=== PATIENT | female | born 1985 | race Caucasian/White ===

== ENCOUNTER → 2016-08-10 | Outpatient (CLI) | payer OTHER ==
[2016-08-10 09:43] LABS: ALBUMIN 3.4 GM/DL (3.2-5.2); ALBUMIN/GLOBULIN RATIO 0.94 (1.00-1.93); ALKALINE PHOSPHATASE 53 U/L (45-117); ALT/SGPT 66 U/L (12-78); ANION GAP 7 MEQ/L (8-16); AST/SGOT 90 U/L (15-37); BILIRUBIN,TOTAL 0.4 MG/DL (0.2-1.0); BLOOD UREA NITROGEN 16 MG/DL (7-18); CALCIUM LEVEL 8.9 MG/DL (8.5-10.1); CARBON DIOXIDE LEVEL 28 MEQ/L (21-32); CHLORIDE LEVEL 103 MEQ/L (98-107); FREE T4 1.19 NG/DL (0.76-1.46); GLOMERULAR FILTRATION RATE > 60.0 (>60); GLUCOSE, FASTING 126 MG/DL (70-105); SODIUM LEVEL 138 MEQ/L (136-145)
== END ==
LOC: M WUC 08:22
PROVIDERS: ATTEND Nurse Practitioner Family
DX: E11.9 Type 2 diabetes mellitus without complications (principal); E03.9 Hypothyroidism, unspecified

== ENCOUNTER → 2016-11-18 | Outpatient (CLI) | payer OTHER ==
[2016-11-18 10:47] LABS: ALBUMIN 3.5 GM/DL (3.2-5.2); ALBUMIN/GLOBULIN RATIO 0.81 (1.00-1.93); ALKALINE PHOSPHATASE 68 U/L (45-117); ALT/SGPT 106 U/L (12-78); ANION GAP 9 MEQ/L (8-16); AST/SGOT 136 U/L (15-37); BILIRUBIN,TOTAL 0.5 MG/DL (0.2-1.0); BLOOD UREA NITROGEN 19 MG/DL (7-18); CALCIUM LEVEL 9.5 MG/DL (8.5-10.1); CARBON DIOXIDE LEVEL 26 MEQ/L (21-32); CHLORIDE LEVEL 102 MEQ/L (98-107); CREATININE FOR GFR 0.92 MG/DL (0.55-1.02); FREE T4 1.35 NG/DL (0.76-1.46); GLOMERULAR FILTRATION RATE > 60.0 (>60); GLUCOSE, FASTING 221 MG/DL (70-105); SODIUM LEVEL 137 MEQ/L (136-145); TOTAL PROTEIN 7.8 GM/DL (6.4-8.2)
[2016-11-18 10:52] LABS: POTASSIUM SERUM 5.2 MEQ/L (3.5-5.1)
== END ==
LOC: M WUC 08:20
PROVIDERS: ATTEND Nurse Practitioner Family
DX: E11.9 Type 2 diabetes mellitus without complications (principal); E03.9 Hypothyroidism, unspecified

== ENCOUNTER → 2016-12-01 | Outpatient (CLI) | payer OTHER ==
[2016-12-01 13:58] LABS: BASO % 0.5 % (0.0-1.0); EOS # 0.3 K/mm3 (0.0-0.50); EOS % 3.8 % (0.0-3.0); LARGE UNSTAINED CELL # 0.1 K/mm3 (0.0-0.4); LYMPH # 1.9 K/mm3 (1.5-4.5); LYMPH % 21.2 % (24.0-44.0); MEAN CORPUSCULAR HEMOGLOBIN 27.9 pg (27.0-33.0); MEAN CORPUSCULAR HGB CONC 32.6 g/dl (32.0-36.5); MEAN CORPUSCULAR VOLUME 85.6 fl (80.0-96.0); MONO # 0.3 K/mm3 (0.0-0.8); MONO % 3.5 % (0.0-5.0); PLATELET COUNT, AUTOMATED 210 k/mm3 (150-450); RED CELL DISTRIBUTION WIDTH 13.5 % (11.5-14.5); WHITE BLOOD COUNT 8.6 K/mm3 (4.0-10.0)
[2016-12-01 14:18] LABS: ALBUMIN 3.9 GM/DL (3.2-5.2); ALBUMIN/GLOBULIN RATIO 0.93 (1.00-1.93); ALKALINE PHOSPHATASE 75 U/L (45-117); ALT/SGPT 104 U/L (12-78); ANION GAP 7 MEQ/L (8-16); AST/SGOT 129 U/L (15-37); BILIRUBIN,TOTAL 0.4 MG/DL (0.2-1.0); BLOOD UREA NITROGEN 18 MG/DL (7-18); CALCIUM LEVEL 10.5 MG/DL (8.5-10.1); CARBON DIOXIDE LEVEL 27 MEQ/L (21-32); CHLORIDE LEVEL 103 MEQ/L (98-107); CREATININE FOR GFR 1.01 MG/DL (0.55-1.02); GLOMERULAR FILTRATION RATE > 60.0 (>60); GLUCOSE, FASTING 251 MG/DL (70-105); SODIUM LEVEL 137 MEQ/L (136-145); TOTAL PROTEIN 8.1 GM/DL (6.4-8.2)
[2016-12-01 14:22] LABS: POTASSIUM SERUM 5.5 MEQ/L (3.5-5.1)
[2016-12-01 15:05] LABS: MICROSCOPIC INDICATED? MAN YES (NO)
[2016-12-01 15:15] LABS: BACTERIA, URINE SMALL AMOUNT; HYALINE CAST, URINE NONE SEEN /lpf (0-1); RBC, URINE TNTC /hpf (0-3); SQUAMOUS EPITHELIAL CELL URINE SMALL AMOUNT /hpf (SMALL AMT)
[2016-12-01 15:17] LABS: MICROSCOPIC EXAM PERFORMED
== END ==
LOC: M WUC 09:31
PROVIDERS: ATTEND Physician Assistant
DX: R10.32 Left lower quadrant pain (principal)

== ENCOUNTER → 2016-12-01 | Outpatient (CLI) | payer OTHER ==
--- NOTE | 2016-12-01 11:57 | REP ---
CT ABDOMEN AND PELVIS WITHOUT CONTRAST: CT abdomen and pelvis performed without oral or IV contrast. Sagittal and coronal reconstruction images are performed. The visualized lung bases are clear. The liver demonstrates multiple tiny subcentimeter hypodensities scattered throughout the liver. The liver is otherwise unremarkable. Gallbladder is unremarkable. Spleen, adrenals, and pancreas are unremarkable, as is the right kidney. The left kidney demonstrates moderate hydronephrosis. There is a tiny 2 mm calculus in the lower pole collecting system. There is a 4 mm calculus in the proximal left ureter causing moderate left hydronephrosis. There is no abdominal aortic aneurysm. There is no adenopathy. There is no free air or free fluid. There is no evidence of appendicitis. There is no evidence of a pelvic mass. IMPRESSION: 4 mm calculus proximal left ureter causes moderate left hydronephrosis. Multiple tiny subcentimeter hypodensities in the liver of uncertain significance. Recommend liver ultrasound to further evaluate. Signed by Dex Jc MD 12/01/2016 05:13 P
== END ==
LOC: M RAD 10:12
PROVIDERS: ATTEND Physician Assistant
DX: R10.32 Left lower quadrant pain (principal); M54.5 Low back pain

== ENCOUNTER → 2016-12-16 | Outpatient (REF) | payer OTHER | LOC: M SMT 12:55 | PROVIDERS: ATTEND Nurse Practitioner Women's Health | DX: N20.1 Calculus of ureter (principal) ==

== ENCOUNTER → 2016-12-23 | Outpatient (CLI) | payer OTHER ==
--- NOTE | 2016-12-23 12:14 | REP ---
RIGHT UPPER QUADRANT SONOGRAPHY: HISTORY: Nonalcoholic steatohepatitis. Comparison CT study December 01, 2016. FINDINGS: Scan quality inhibited to some degree by abdominal gas and limited scan windows. Scanning demonstrates poor insonation and increased echogenicity in the liver consistent with a some fatty infiltration. No focal liver mass lesion is seen by ultrasound. A normal sized thin-walled gallbladder is seen containing a small amount of sludge but no stone or polyp. Common bile duct is normal measuring 0.5 cm in greatest diameter. The pancreas is not observed due to abdominal gas. There is no evidence of ascites or right renal abnormality. The right kidney measures 12.5 x 6.0 x 4.8 cm. IMPRESSION: Minimal sludge in the gallbladder. Findings consistent with some degree of fatty infiltration of the liver. Pancreas is obscured by abdominal gas. Otherwise negative. Signed by Tyree Pedersen MD 12/23/2016 12:32 P
== END ==
LOC: M RAD 08:06
PROVIDERS: ATTEND Internal Medicine Gastroenterology
DX: K75.81 Nonalcoholic steatohepatitis (NASH) (principal)

== ENCOUNTER → 2017-01-10 | Outpatient (CLI) | payer OTHER ==
--- NOTE | 2017-01-11 09:31 | REP ---
MRI ABDOMEN WITHOUT AND WITH CONTRAST: 01/10/2017. Clinical history: Severe BRAFIELD and mild fibrosis on liver biopsy. Subtle hypodensity suggested on CT in the liver. Comparison: Abdominal ultrasound 12/23/2016, 08/14/2014, CT abdomen and pelvis without contrast 12/01/2016. Technique: Coronal true FISP, in and out of phase axial, T1, T2, fat suppressed T2 and gradient echo axial, coronal T2 and fat suppressed T2 images followed by a bolus of 18 mL of ProHance and dynamic axial gradient echo images along with coronal gradient echo sequence provided. Findings: The in and out of phase images demonstrate signal drop off throughout the liver indicating fatty liver change. There is mild splenomegaly with a vertical diameter of the spleen 14 cm. There is hepatomegaly with an enlarged left hepatic lobe with the right hepatic lobe showing a 23 cm vertical diameter in the midclavicular line. There are a few scattered tiny hyperintense foci on the liver images which are not well reproducible. I do not see any definite mass, abnormal enhancement, evidence of hemangioma, subcapsular hematoma or other acute liver finding. Hepatic veins and the portal system enhance normally. Gallbladder shows no filling defect or wall thickening. No pericholecystic fluid or ascites. Adrenal glands and kidneys grossly normal. Pancreas shows no mass or ductal dilatation. Previously noted left hydronephrosis is entirely resolved. Abdominal aorta grossly intact. No periaortic other retroperitoneal lymphadenopathy. No mesenteric edema or fluid collection. Visualized bowel loops intact. Marrow signal grossly normal. Impression: 1. Diffuse fatty infiltration of the liver with hepatomegaly and a 23 cm vertical diameter of the right hepatic lobe in the midclavicular line. There is mild splenomegaly up to 14 cm vertical diameter as well. 2. No hepatic mass. The tiny hypodense foci scattered in the liver on the CT scan cannot be reproduced on multiple scans. Findings may be related to slight heterogeneity of the fatty infiltration. No abnormal enhancement. No other finding. Signed by Zeke Decker MD 01/11/2017 07:00 P
== END ==
LOC: M RAD 16:56
PROVIDERS: ATTEND Internal Medicine Gastroenterology
DX: D37.6 Neoplasm of uncertain behavior of liver, gallbladder and bile ducts (principal); R93.3 Abnormal findings on diagnostic imaging of other parts of digestive tract

== ENCOUNTER → 2017-03-13 | Outpatient (CLI) | payer OTHER ==
[2017-03-13 09:29] LABS: ALBUMIN 3.3 GM/DL (3.2-5.2); ALBUMIN/GLOBULIN RATIO 0.73 (1.00-1.93); ALKALINE PHOSPHATASE 73 U/L (45-117); ALT/SGPT 79 U/L (12-78); ANION GAP 7 MEQ/L (8-16); AST/SGOT 71 U/L (15-37); BILIRUBIN,TOTAL 0.3 MG/DL (0.2-1.0); BLOOD UREA NITROGEN 16 MG/DL (7-18); CALCIUM LEVEL 9.7 MG/DL (8.5-10.1); CARBON DIOXIDE LEVEL 29 MEQ/L (21-32); CHLORIDE LEVEL 99 MEQ/L (98-107); CREATININE FOR GFR 0.75 MG/DL (0.55-1.02); FREE T4 1.21 NG/DL (0.76-1.46); GLOMERULAR FILTRATION RATE > 60.0 (>60); GLUCOSE, FASTING 226 MG/DL (70-105); POTASSIUM SERUM 4.9 MEQ/L (3.5-5.1); SODIUM LEVEL 135 MEQ/L (136-145); TOTAL PROTEIN 7.8 GM/DL (6.4-8.2)
== END ==
LOC: M WUC 08:09
PROVIDERS: ATTEND Nurse Practitioner Family
DX: E11.65 Type 2 diabetes mellitus with hyperglycemia (principal); E03.9 Hypothyroidism, unspecified

== ENCOUNTER → 2017-05-09 | Outpatient (CLI) | payer OTHER ==
[2017-05-09 13:06] LABS: ALBUMIN 3.6 GM/DL (3.2-5.2); ALBUMIN/GLOBULIN RATIO 0.86 (1.00-1.93); ALKALINE PHOSPHATASE 57 U/L (45-117); ALT/SGPT 93 U/L (12-78); ANION GAP 9 MEQ/L (8-16); AST/SGOT 94 U/L (7-37); BILIRUBIN,TOTAL 0.5 MG/DL (0.2-1.0); BLOOD UREA NITROGEN 14 MG/DL (7-18); CALCIUM LEVEL 9.2 MG/DL (8.5-10.1); CARBON DIOXIDE LEVEL 26 MEQ/L (21-32); CHLORIDE LEVEL 101 MEQ/L (98-107); CHOLESTEROL LEVEL 214 MG/DL (<200); CREATININE FOR GFR 0.74 MG/DL (0.55-1.02); FREE T4 1.28 NG/DL (0.76-1.46); GLOMERULAR FILTRATION RATE > 60.0 (>60); GLUCOSE, FASTING 147 MG/DL (70-105); SODIUM LEVEL 136 MEQ/L (136-145); TOTAL PROTEIN 7.8 GM/DL (6.4-8.2); TRIGLYCERIDES LEVEL 241 MG/DL (<150)
== END ==
LOC: M WUC 09:39
PROVIDERS: ATTEND Nurse Practitioner Family
DX: E11.65 Type 2 diabetes mellitus with hyperglycemia (principal)

== ENCOUNTER → 2017-07-17 | Outpatient (REF) | payer OTHER ==
[2017-07-17 15:45] LABS: BASO # 0.1 10^3/uL (0.0-0.2); BASO % 0.4 % (0.0-1.0); EOS # 0.1 10^3/uL (0.0-0.50); EOS % 0.3 % (0.0-3.0); HEMATOCRIT 43.3 % (36.0-47.0); HEMOGLOBIN 14.2 g/dl (12.0-16.0); IMMATURE GRANULOCYTE # 0.1 10^3/uL (0-0); IMMATURE GRANULOCYTE % 0.7 % (0-0); LYMPH # 4.4 10^3/uL (1.5-4.5); LYMPH % 20.6 % (24.0-44.0); MEAN CORPUSCULAR HEMOGLOBIN 27.1 pg (27.0-33.0); MEAN CORPUSCULAR HGB CONC 32.8 g/dl (32.0-36.5); MEAN CORPUSCULAR VOLUME 82.6 fl (80.0-96.0); MONO # 0.9 10^3/uL (0.0-0.8); MONO % 4.1 % (0.0-5.0); NEUTROPHILS # 15.8 10^3/uL (1.8-7.7); NEUTROPHILS % 73.9 % (36.0-66.0); PLATELET COUNT, AUTOMATED 381 10^3/uL (150-450); RED BLOOD COUNT 5.24 10^6/uL (4.00-5.40); RED CELL DISTRIBUTION WIDTH 13.5 % (11.5-14.5); WHITE BLOOD COUNT 21.4 10^3/uL (4.0-10.0)
[2017-07-17 15:49] LABS: ALBUMIN 3.5 GM/DL (3.2-5.2); ALKALINE PHOSPHATASE 55 U/L (45-117); ALT/SGPT 57 U/L (12-78); ANION GAP 10 MEQ/L (8-16); AST/SGOT 46 U/L (7-37); BILIRUBIN,TOTAL 0.6 MG/DL (0.2-1.0); BLOOD UREA NITROGEN 20 MG/DL (7-18); CARBON DIOXIDE LEVEL 29 MEQ/L (21-32); CHLORIDE LEVEL 95 MEQ/L (98-107); GLOMERULAR FILTRATION RATE > 60.0 (>60); GLUCOSE, FASTING 334 MG/DL (70-100); LIPASE 166 U/L (73-393); POTASSIUM SERUM 4.6 MEQ/L (3.5-5.1); SODIUM LEVEL 134 MEQ/L (136-145); TOTAL PROTEIN 7.4 GM/DL (6.4-8.2)
== END ==
LOC: M SFHCPLAZ 13:26
DX: R10.11 Right upper quadrant pain (principal)

== ENCOUNTER → 2017-07-17 | Outpatient (CLI) | payer OTHER | LOC: M RAD 15:31 | DX: R10.11 Right upper quadrant pain (principal); R16.0 Hepatomegaly, not elsewhere classified; R18.8 Other ascites; K76.0 Fatty (change of) liver, not elsewhere classified | CPT/HCPCS: 76705 ==

== ENCOUNTER → 2017-07-18 | Outpatient (CLI) | payer OTHER ==
[~2017-07-18] MED LIST: GASTROGRAFIN SOLUTION 30ML (Q9963) As Ordered; ISOVUE-370 76% 100ML VIAL (Q9967) As Ordered
== END ==
LOC: M RAD 09:00
DX: R10.11 Right upper quadrant pain (principal)
CPT/HCPCS: Q9963

== ENCOUNTER → 2017-08-12 | Outpatient (CLI) | payer OTHER ==
[2017-08-12 14:40] LABS: ALBUMIN 3.6 GM/DL (3.2-5.2); ALBUMIN/GLOBULIN RATIO 0.97 (1.00-1.93); ALKALINE PHOSPHATASE 53 U/L (45-117); ALT/SGPT 75 U/L (12-78); ANION GAP 8 MEQ/L (8-16); AST/SGOT 67 U/L (7-37); BILIRUBIN,TOTAL 0.4 MG/DL (0.2-1.0); BLOOD UREA NITROGEN 18 MG/DL (7-18); CARBON DIOXIDE LEVEL 29 MEQ/L (21-32); CHLORIDE LEVEL 101 MEQ/L (98-107); CREATININE FOR GFR 0.73 MG/DL (0.55-1.30); FREE T4 1.18 NG/DL (0.76-1.46); GLOMERULAR FILTRATION RATE > 60.0 (>60); GLUCOSE, FASTING 119 MG/DL (70-100); POTASSIUM SERUM 4.7 MEQ/L (3.5-5.1); SODIUM LEVEL 138 MEQ/L (136-145); TOTAL PROTEIN 7.3 GM/DL (6.4-8.2)
[2017-08-12 14:48] LABS: ESTIMATED AVERAGE GLUCOSE 240 MG/DL (60-110)
[2017-08-12 14:49] LABS: MALB URINE SIEMENS 29.5 MG/L; MAU/CREAT RATIO 14.1 MCG/MG (0.0-30.0)
== END ==
LOC: M WUC 08:18
DX: I10 Essential (primary) hypertension (principal); K75.81 Nonalcoholic steatohepatitis (NASH); E03.9 Hypothyroidism, unspecified; E11.65 Type 2 diabetes mellitus with hyperglycemia
CPT/HCPCS: 84443

== ENCOUNTER 2017-09-28 11:06 | Emergency (ER) | payer OTHER ==
[2017-09-28 11:25] LABS: BEDSIDE GLUCOSE 483 MG/DL (70-105)
[2017-09-28] MEDS: NS 1,000 ML IV ×2 (11:39→14:15)
[2017-09-28 11:48] LABS: VENOUS BASE EXCESS -1.2 (-2.0-2.0); VENOUS HCO3 25.4 MEQ/L (23.0-27.0); VENOUS O2 SATURATION 49.2 % (60.0-80.0); VENOUS PARTIAL PRESSURE CO2 49.5 mmHg (38.0-50.0); VENOUS PARTIAL PRESSURE O2 29.6 mmHg (30.0-50.0); VENOUS PH 7.328 UNITS (7.330-7.430); VENOUS STANDARD HCO3 22.2 MEQ/L; VENOUS TOTAL CO2 26.9 MEQ/L (24.0-28.0)
[2017-09-28 11:50] LABS: BASO # 0.1 10^3/uL (0.0-0.2); BASO % 0.6 % (0.0-1.0); EOS # 0.1 10^3/uL (0.0-0.50); EOS % 0.6 % (0.0-3.0); HEMATOCRIT 45.2 % (36.0-47.0); HEMOGLOBIN 15.1 g/dl (12.0-15.5); IMMATURE GRANULOCYTE % 0.7 % (0-3.0); LYMPH # 3.2 10^3/uL (1.5-4.5); LYMPH % 16.5 % (24.0-44.0); MEAN CORPUSCULAR HEMOGLOBIN 27.6 pg (27.0-33.0); MEAN CORPUSCULAR HGB CONC 33.4 g/dl (32.0-36.5); MEAN CORPUSCULAR VOLUME 82.5 fl (80.0-96.0); MONO # 0.7 10^3/uL (0.0-0.8); MONO % 3.8 % (0.0-5.0); NEUTROPHILS # 15.1 10^3/uL (1.8-7.7); NEUTROPHILS % 77.8 % (36.0-66.0); PLATELET COUNT, AUTOMATED 402 10^3/uL (150-450); RED BLOOD COUNT 5.48 10^6/uL (4.00-5.40); RED CELL DISTRIBUTION WIDTH 12.5 % (11.5-14.5); WHITE BLOOD COUNT 19.4 10^3/uL (4.0-10.0)
[2017-09-28] MEDS ORDERED: MORPHINE 4 MG/ML 1ML VIAL/SYRINGE (J2270) As Ordered (11:52)
[2017-09-28] MEDS: ONDANSETRON 4MG/2ML VIAL (J2405) IV (12:01)
[2017-09-28] MEDS: MORPHINE 4 MG/ML 1ML VIAL/SYRINGE (J2270) IV (12:02)
[2017-09-28 12:04] LABS: CONTROL LINE HCG INT CTR LINE PRESENT; HCG, SERUM QUALITATIVE NEGATIVE (NEGATIVE)
[2017-09-28 12:05] LABS: KETONE, URINE AUTO RFX 2+ mg/dL (NEGATIVE); LEUKOCYTE ESTERASE UR AUTO RFX NEGATIVE (NEGATIVE); NITRITE, URINE AUTO RFX NEGATIVE (NEGATIVE); RBC, URINE AUTO RFX 4 /HPF (0-3); SPECIFIC GRAVITY UR AUTO RFX 1.035 (1.002-1.035); SQUAM EPITHELIAL CELL UR AURFX 2 /HPF (0-6); WBC, URINE AUTO RFX 3 /HPF (0-3)
[2017-09-28 12:25] LABS: ESTIMATED AVERAGE GLUCOSE 286 MG/DL (60-110); HEMOGLOBIN A1c 11.6 %
[2017-09-28 13:25] LABS: BEDSIDE GLUCOSE 351 MG/DL (70-105)
[2017-09-28 13:53] LABS: ALBUMIN 3.6 GM/DL (3.2-5.2); ALKALINE PHOSPHATASE 76 U/L (45-117); ALT/SGPT 76 U/L (12-78); ANION GAP 16 MEQ/L (8-16); AST/SGOT 66 U/L (7-37); BILIRUBIN,DIRECT 0.3 MG/DL (0.0-0.2); BILIRUBIN,TOTAL 0.8 MG/DL (0.2-1.0); BLOOD UREA NITROGEN 25 MG/DL (7-18); CALCIUM LEVEL 10.2 MG/DL (8.5-10.1); CARBON DIOXIDE LEVEL 23 MEQ/L (21-32); CHLORIDE LEVEL 92 MEQ/L (98-107); CREATININE FOR GFR 1.06 MG/DL (0.55-1.30); GLOMERULAR FILTRATION RATE > 60.0 (>60); LIPASE 177 U/L (73-393); SODIUM LEVEL 131 MEQ/L (136-145); TOTAL PROTEIN 8.1 GM/DL (6.4-8.2)
[2017-09-28 14:04] LABS: GLUCOSE, FASTING 438 MG/DL (70-100)
[2017-09-28 15:50] LABS: HEMATOCRIT 37.6 % (36.0-47.0); HEMOGLOBIN 12.3 g/dl (12.0-15.5); MEAN CORPUSCULAR HGB CONC 32.7 g/dl (32.0-36.5); MEAN CORPUSCULAR VOLUME 82.6 fl (80.0-96.0); PLATELET COUNT, AUTOMATED 282 10^3/uL (150-450); RED BLOOD COUNT 4.55 10^6/uL (4.00-5.40); RED CELL DISTRIBUTION WIDTH 12.6 % (11.5-14.5); WHITE BLOOD COUNT 14.9 10^3/uL (4.0-10.0)
[2017-09-28 16:06] LABS: ANION GAP 8 MEQ/L (8-16); BLOOD UREA NITROGEN 23 MG/DL (7-18); CALCIUM LEVEL 8.3 MG/DL (8.5-10.1); CARBON DIOXIDE LEVEL 25 MEQ/L (21-32); CHLORIDE LEVEL 102 MEQ/L (98-107); CREATININE FOR GFR 0.93 MG/DL (0.55-1.30); GLOMERULAR FILTRATION RATE > 60.0 (>60); GLUCOSE, FASTING 317 MG/DL (70-100); SODIUM LEVEL 135 MEQ/L (136-145)
[2017-09-28 16:12] LABS: POTASSIUM SERUM 5.5 MEQ/L (3.5-5.1)
== END 2017-09-28 16:36 | disposition home or self-care (01) ==
LOC: M ED 11:06
DX: K80.50 Calculus of bile duct without cholangitis or cholecystitis without obstruction (principal); E11.65 Type 2 diabetes mellitus with hyperglycemia; I10 Essential (primary) hypertension; K21.9 Gastro-esophageal reflux disease without esophagitis; E28.2 Polycystic ovarian syndrome; K76.0 Fatty (change of) liver, not elsewhere classified; E03.9 Hypothyroidism, unspecified; G43.909 Migraine, unspecified, not intractable, without status migrainosus; Z79.4 Long term (current) use of insulin
CPT/HCPCS: J2270

== ENCOUNTER → 2017-10-03 | Outpatient (REF) | payer OTHER ==
[2017-10-03 13:51] LABS: BASO # 0.1 10^3/uL (0.0-0.2); BASO % 0.6 % (0.0-1.0); EOS # 0.2 10^3/uL (0.0-0.50); EOS % 2.6 % (0.0-3.0); HEMATOCRIT 39.5 % (36.0-47.0); HEMOGLOBIN 12.8 g/dl (12.0-15.5); IMMATURE GRANULOCYTE % 0.4 % (0-3.0); LYMPH # 2.6 10^3/uL (1.5-4.5); LYMPH % 30.9 % (24.0-44.0); MEAN CORPUSCULAR HEMOGLOBIN 27.2 pg (27.0-33.0); MEAN CORPUSCULAR HGB CONC 32.4 g/dl (32.0-36.5); MEAN CORPUSCULAR VOLUME 83.9 fl (80.0-96.0); MONO # 0.5 10^3/uL (0.0-0.8); MONO % 6.3 % (0.0-5.0); NEUTROPHILS % 59.2 % (36.0-66.0); PLATELET COUNT, AUTOMATED 235 10^3/uL (150-450); RED BLOOD COUNT 4.71 10^6/uL (4.00-5.40); RED CELL DISTRIBUTION WIDTH 12.5 % (11.5-14.5); WHITE BLOOD COUNT 8.4 10^3/uL (4.0-10.0)
[2017-10-03 15:27] LABS: ALBUMIN 3.6 GM/DL (3.2-5.2); ALBUMIN/GLOBULIN RATIO 0.82 (1.00-1.93); ALKALINE PHOSPHATASE 83 U/L (45-117); ALT/SGPT 104 U/L (12-78); ANION GAP 6 MEQ/L (8-16); AST/SGOT 92 U/L (7-37); BILIRUBIN,TOTAL 0.3 MG/DL (0.2-1.0); BLOOD UREA NITROGEN 16 MG/DL (7-18); CALCIUM LEVEL 10.6 MG/DL (8.5-10.1); CARBON DIOXIDE LEVEL 32 MEQ/L (21-32); CHLORIDE LEVEL 95 MEQ/L (98-107); CREATININE FOR GFR 0.82 MG/DL (0.55-1.30); GLOMERULAR FILTRATION RATE > 60.0 (>60); GLUCOSE, FASTING 355 MG/DL (70-100); SODIUM LEVEL 133 MEQ/L (136-145)
[2017-10-03 15:33] LABS: POTASSIUM SERUM 5.2 MEQ/L (3.5-5.1)
== END ==
LOC: M SFHCPLAZ 12:07
DX: E87.5 Hyperkalemia (principal); D72.829 Elevated white blood cell count, unspecified

== ENCOUNTER → 2017-10-11 | Outpatient (CLI) | payer OTHER | LOC: M RAD 07:40 | DX: R10.13 Epigastric pain (principal) | CPT/HCPCS: J2805 ==

== ENCOUNTER → 2017-10-14 | Outpatient (REF) | payer OTHER ==
[2017-10-14 11:21] LABS: ANION GAP 9 MEQ/L (8-16); BLOOD UREA NITROGEN 16 MG/DL (7-18); CALCIUM LEVEL 9.2 MG/DL (8.5-10.1); CARBON DIOXIDE LEVEL 28 MEQ/L (21-32); CHLORIDE LEVEL 100 MEQ/L (98-107); CREATININE FOR GFR 0.76 MG/DL (0.55-1.30); GLOMERULAR FILTRATION RATE > 60.0 (>60); GLUCOSE, FASTING 229 MG/DL (70-100); POTASSIUM SERUM 4.6 MEQ/L (3.5-5.1); SODIUM LEVEL 137 MEQ/L (136-145)
== END ==
LOC: M LABWUC 10:33
DX: E87.5 Hyperkalemia (principal)

== ENCOUNTER → 2017-11-11 | Outpatient (CLI) | payer OTHER ==
[2017-11-11 11:22] LABS: ESTIMATED AVERAGE GLUCOSE 286 MG/DL (60-110); HEMOGLOBIN A1c 11.6 %
[2017-11-11 11:26] LABS: ALBUMIN 3.3 GM/DL (3.2-5.2); ALBUMIN/GLOBULIN RATIO 0.85 (1.00-1.93); ALKALINE PHOSPHATASE 61 U/L (45-117); ALT/SGPT 128 U/L (12-78); ANION GAP 9 MEQ/L (8-16); AST/SGOT 175 U/L (7-37); BILIRUBIN,TOTAL 0.3 MG/DL (0.2-1.0); BLOOD UREA NITROGEN 16 MG/DL (7-18); CALCIUM LEVEL 9.2 MG/DL (8.5-10.1); CARBON DIOXIDE LEVEL 28 MEQ/L (21-32); CHLORIDE LEVEL 100 MEQ/L (98-107); CREATININE FOR GFR 0.81 MG/DL (0.55-1.30); FREE T4 1.22 NG/DL (0.76-1.46); GLOMERULAR FILTRATION RATE > 60.0 (>60); GLUCOSE, FASTING 189 MG/DL (70-100); POTASSIUM SERUM 4.6 MEQ/L (3.5-5.1); SODIUM LEVEL 137 MEQ/L (136-145); TOTAL PROTEIN 7.2 GM/DL (6.4-8.2)
== END ==
LOC: M WUC 08:15
DX: E11.65 Type 2 diabetes mellitus with hyperglycemia (principal); E03.9 Hypothyroidism, unspecified
CPT/HCPCS: 84443

== ENCOUNTER 2017-12-15 05:54 | Day surgery (SDC) | payer OTHER ==
[2017-12-15 06:47] LABS: BEDSIDE GLUCOSE 243 MG/DL (70-105)
[2017-12-15 06:48] LABS: CONTROL LINE UCG INT CTR LINE PRESENT; URINE PREG TEST NEGATIVE (NEGATIVE)
[2017-12-15] MEDS: LR 1,000 ML IV ×2 (07:04→09:11)
[2017-12-15] MEDS ORDERED: ONDANSETRON 4MG/2ML VIAL (J2405) As Ordered (07:09)
[2017-12-15] MEDS ORDERED: fentaNYL 250 MCG/5 ML INJECTION (J3010) As Ordered (07:09)
[2017-12-15] MEDS ORDERED: PROPOFOL 200 MG/20 ML VIAL As Ordered (07:09)
[2017-12-15] MEDS ORDERED: MIDAZOLAM INJ 2 MG/2 ML VIAL (J2250) As Ordered (07:09)
[2017-12-15] MEDS ORDERED: ROCURONIUM BROMIDE 50 MG/5 ML VIAL As Ordered ×2 (07:09→08:44)
[2017-12-15] MEDS ORDERED: dexameTHASONE 4 MG/ML 1ML VIAL (J1100) As Ordered ×2 (07:09)
[2017-12-15] MEDS ORDERED: HumaLOG INSULIN (NovoLOG) PER UNIT As Ordered (07:11)
[2017-12-15] MEDS ORDERED: LIDOCAINE 2% INJ 100 MG/5 ML SDV (FOR ANES.) As Ordered (07:13)
[2017-12-15] MEDS: AMPICILLIN SOD/SULBACTAM SOD 3 GM in D5W MINI-BAG PLUS 100 ML IV (07:40)
[2017-12-15] MEDS: BUPIVACAINE HCL 0.25% 30 ML VIAL As Ordered (07:53)
[2017-12-15] MEDS: LIDOCAINE 1% SDV INJ 30 ML VIAL As Ordered (07:53)
[2017-12-15] MEDS ORDERED: NEOSTIGMINE 10 MG/10 ML VIAL (J2710) As Ordered (08:02)
[2017-12-15] MEDS ORDERED: GLYCOPYRROLATE INJ 0.2 MG/ML 2 ML VIAL As Ordered ×2 (08:02)
[2017-12-15] MEDS ORDERED: fentaNYL 100 MCG/2 ML INJECTION (J3010) As Ordered (08:51)
[2017-12-15 09:19] LABS: BEDSIDE GLUCOSE 352 MG/DL (70-105)
[2017-12-15] MEDS: HumaLOG INSULIN (NovoLOG) PER UNIT SC (09:20)
[2017-12-15] MEDS ORDERED: NORCO, ANEXSIA 5/325MG TABLET (HYDROcodone/ACETAMINOPHEN) PO ×2 (09:30)
[2017-12-15] MEDS ORDERED: KETOROLAC 30 MG/ML VIAL (J1885) IV (09:30)
[2017-12-15] MEDS: fentaNYL 100 MCG/2 ML INJECTION (J3010) IV ×4 (09:40→09:55)
[2017-12-15] MEDS: ONDANSETRON 4MG/2ML VIAL (J2405) IV (09:40)
[2017-12-15] MEDS: PERCOCET 5MG/325MG TAB PO ×2 (09:40→10:10)
[2017-12-15 10:48] LABS: BEDSIDE GLUCOSE 338 MG/DL (70-105)
[2017-12-15] MEDS: METOCLOPRAMIDE INJ 10MG/2ML VIAL (J2765) IV (11:00)
[2017-12-15] MEDS ORDERED: ceFAZolin 2 GM/D5W 50 ML IV BAG (J0690 PER 500MG) As Ordered (11:54)
== END 2017-12-15 14:50 | disposition home or self-care (01) ==
LOC: M SDC 05:54
DX: K80.10 Calculus of gallbladder with chronic cholecystitis without obstruction (principal); K75.81 Nonalcoholic steatohepatitis (NASH); I10 Essential (primary) hypertension; E11.65 Type 2 diabetes mellitus with hyperglycemia; E03.9 Hypothyroidism, unspecified; K21.9 Gastro-esophageal reflux disease without esophagitis; E78.00 Pure hypercholesterolemia, unspecified; E78.2 Mixed hyperlipidemia; G43.009 Migraine without aura, not intractable, without status migrainosus; L30.9 Dermatitis, unspecified; L21.9 Seborrheic dermatitis, unspecified; E28.2 Polycystic ovarian syndrome; E55.9 Vitamin D deficiency, unspecified; J30.9 Allergic rhinitis, unspecified; B37.3 Candidiasis of vulva and vagina; E66.9 Obesity, unspecified; Z91.018 Allergy to other foods; Z79.899 Other long term (current) drug therapy; Z79.84 Long term (current) use of oral hypoglycemic drugs
CPT/HCPCS: 47562

== ENCOUNTER → 2018-02-24 | Outpatient (CLI) | payer OTHER ==
[2018-02-24 18:01] LABS: ALBUMIN 3.3 GM/DL (3.2-5.2); ALBUMIN/GLOBULIN RATIO 0.85 (1.00-1.93); ALKALINE PHOSPHATASE 50 U/L (45-117); ALT/SGPT 34 U/L (12-78); ANION GAP 11 MEQ/L (8-16); AST/SGOT 42 U/L (7-37); BILIRUBIN,TOTAL 0.4 MG/DL (0.2-1.0); BLOOD UREA NITROGEN 15 MG/DL (7-18); CARBON DIOXIDE LEVEL 27 MEQ/L (21-32); CHLORIDE LEVEL 100 MEQ/L (98-107); CHOLESTEROL LEVEL 176 MG/DL (<200); CHOLESTEROL RISK RATIO 4.512 (<5); CREATININE FOR GFR 0.76 MG/DL (0.55-1.30); GLOMERULAR FILTRATION RATE > 60.0 (>60); GLUCOSE, FASTING 115 MG/DL (70-100); HDL CHOLESTEROL 39 MG/DL (>40); LDL CHOLESTEROL 76 MG/DL (<100); NON-HDL-C 137 MG/DL; POTASSIUM SERUM 4.7 MEQ/L (3.5-5.1); SODIUM LEVEL 138 MEQ/L (136-145); TOTAL PROTEIN 7.2 GM/DL (6.4-8.2); TRIGLYCERIDES LEVEL 306 MG/DL (<150)
[2018-02-24 18:06] LABS: ESTIMATED AVERAGE GLUCOSE 209 MG/DL (60-110); HEMOGLOBIN A1c 8.9 %
[2018-02-24 18:35] LABS: MALB URINE SIEMENS 34.7 MG/L; MAU/CREAT RATIO 11.9 MCG/MG (0.0-30.0)
[2018-02-26 09:30] LABS: TOTAL 25(OH) VITAMIN D 67.5 NG/ML (30.0-100.0)
== END ==
LOC: M WUC 08:21
DX: E11.9 Type 2 diabetes mellitus without complications (principal); E78.2 Mixed hyperlipidemia; E55.9 Vitamin D deficiency, unspecified
CPT/HCPCS: 80053

== ENCOUNTER → 2018-05-06 | Outpatient (REF) | payer OTHER | LOC: M LAB REF 13:28 | DX: R30.0 Dysuria (principal) ==

== ENCOUNTER → 2018-06-18 | Outpatient (REF) | payer BC, MEDICAID ==
[~2018-06-18] MED LIST changes: +BIOT50004 PO; +DIVA250T67; +FAMO40TA3; +FISH120016 PO; -GASTROGRAFIN SOLUTION 30ML (Q9963) As Ordered; -ISOVUE-370 76% 100ML VIAL (Q9967) As Ordered; +KELN1TAB; +LEVO50TA5; +LISI10TA4; +METF10004; +OMEP20CA3; +OMEP40CA2; +TOUJ1.2I SC; +VITA1CAP7 PO; +[UNRECOGNIZED DRUG - CODE] SC
[2018-06-18 20:04] LABS: CHLAMYDIA DNA AMPLIFICATION NEGATIVE (NEGATIVE); GC DNA AMPLIFICATION NEGATIVE (NEGATIVE)
== END ==
LOC: M SFHCWAGY 17:19
PROVIDERS: ATTEND Nurse Practitioner Women's Health
DX: Z30.41 Encounter for surveillance of contraceptive pills (principal)

== ENCOUNTER → 2018-06-25 | Outpatient (REF) | payer BC, OTHER | LOC: M LAB REF 16:27 | PROVIDERS: ATTEND Physician Assistant | DX: N39.0 Urinary tract infection, site not specified (principal) ==

== ENCOUNTER → 2018-07-17 | Outpatient (CLI) | payer BC, MEDICAID ==
[2018-07-17 09:57] LABS: ALBUMIN 3.3 GM/DL (3.2-5.2); ALT/SGPT 26 U/L (12-78); BILIRUBIN,TOTAL 0.4 MG/DL (0.2-1.0); BLOOD UREA NITROGEN 21 MG/DL (7-18); CARBON DIOXIDE LEVEL 29 MEQ/L (21-32); CHLORIDE LEVEL 100 MEQ/L (98-107); FREE T4 1.17 NG/DL (0.76-1.46); GLOMERULAR FILTRATION RATE > 60.0 (>60); GLUCOSE, FASTING 144 MG/DL (70-100); POTASSIUM SERUM 5.1 MEQ/L (3.5-5.1); SODIUM LEVEL 137 MEQ/L (136-145); THYROID STIMULATING HORMONE 0.829 uIU/ML (0.358-3.740); TOTAL PROTEIN 6.8 GM/DL (6.4-8.2)
[2018-07-17 11:47] LABS: TOTAL 25(OH) VITAMIN D 60.8 NG/ML (30.0-100.0)
== END ==
LOC: M WUC 08:07
PROVIDERS: ATTEND Nurse Practitioner Family
DX: E11.65 Type 2 diabetes mellitus with hyperglycemia (principal); E03.9 Hypothyroidism, unspecified; E55.9 Vitamin D deficiency, unspecified

== ENCOUNTER → 2019-01-16 | Outpatient (CLI) | payer BC ==
[~2019-01-16] MED LIST changes: +D-3-50003 PO; +OMEP1CAP73; -OMEP20CA3; -OMEP40CA2; +OMEP40CA97; -VITA1CAP7 PO
[2019-01-16 10:04] LABS: MALB URINE SIEMENS 27.9 MG/L
[2019-01-16 10:05] LABS: ALBUMIN 3.6 GM/DL (3.2-5.2); ALT/SGPT 40 U/L (12-78); BILIRUBIN,TOTAL 0.4 MG/DL (0.2-1.0); BLOOD UREA NITROGEN 14 MG/DL (7-18); CALCIUM LEVEL 9.4 MG/DL (8.5-10.1); CARBON DIOXIDE LEVEL 28 MEQ/L (21-32); CHLORIDE LEVEL 102 MEQ/L (98-107); CHOLESTEROL LEVEL 186 MG/DL (<200); CHOLESTEROL RISK RATIO 4.325 (<5); FREE T4 1.24 NG/DL (0.76-1.46); GLOMERULAR FILTRATION RATE > 60.0 (>60); GLUCOSE, FASTING 174 MG/DL (70-100); HDL CHOLESTEROL 43 MG/DL (>40); LDL CHOLESTEROL 100 MG/DL (<100); NON-HDL-C 143 MG/DL; POTASSIUM SERUM 4.5 MEQ/L (3.5-5.1); SODIUM LEVEL 138 MEQ/L (136-145); TOTAL PROTEIN 7.1 GM/DL (6.4-8.2); TRIGLYCERIDES LEVEL 214 MG/DL (<150)
[2019-01-16 10:40] LABS: TOTAL 25(OH) VITAMIN D 61.6 NG/ML (30.0-100.0)
== END ==
LOC: M WUC 08:08
PROVIDERS: ATTEND Nurse Practitioner Family
DX: E78.2 Mixed hyperlipidemia (principal); E03.9 Hypothyroidism, unspecified; E11.65 Type 2 diabetes mellitus with hyperglycemia; E55.9 Vitamin D deficiency, unspecified

== ENCOUNTER → 2019-02-26 | Outpatient (REF) | payer BC ==
[~2019-02-26] MED LIST changes: -OMEP1CAP73; +OMEP20CA4; +OMEP40CA2; -OMEP40CA97
== END ==
LOC: M LAB REF 11:30
PROVIDERS: ATTEND Nurse Practitioner Family
DX: R30.0 Dysuria (principal)

== ENCOUNTER → 2019-05-08 | Outpatient (CLI) | payer BC ==
[~2019-05-08] MED LIST changes: -OMEP40CA2; +OMEP40CA97
[2019-05-08 13:14] LABS: ALBUMIN 3.5 GM/DL (3.2-5.2); ALT/SGPT 41 U/L (12-78); BILIRUBIN,TOTAL 0.5 MG/DL (0.2-1.0); BLOOD UREA NITROGEN 16 MG/DL (7-18); CALCIUM LEVEL 9.1 MG/DL (8.5-10.1); CARBON DIOXIDE LEVEL 27 MEQ/L (21-32); CHLORIDE LEVEL 100 MEQ/L (98-107); CREATININE FOR GFR 0.76 MG/DL (0.55-1.30); FREE T4 1.19 NG/DL (0.76-1.46); GLOMERULAR FILTRATION RATE > 60.0 (>60); GLUCOSE, FASTING 162 MG/DL (70-100); POTASSIUM SERUM 4.1 MEQ/L (3.5-5.1); SODIUM LEVEL 135 MEQ/L (136-145); TOTAL PROTEIN 7.1 GM/DL (6.4-8.2)
== END ==
LOC: M WUC 09:14
PROVIDERS: ATTEND Nurse Practitioner Family
DX: E03.9 Hypothyroidism, unspecified (principal); I10 Essential (primary) hypertension

== ENCOUNTER → 2019-06-11 | Outpatient (CLI) | payer BC ==
[~2019-06-11] MED LIST changes: +OMEP-172; -OMEP20CA4
[2019-06-11 08:49] LABS: BLOOD UREA NITROGEN 9 MG/DL (7-18); CALCIUM LEVEL 8.8 MG/DL (8.5-10.1); CARBON DIOXIDE LEVEL 27 MEQ/L (21-32); CHLORIDE LEVEL 102 MEQ/L (98-107); CREATININE FOR GFR 0.79 MG/DL (0.55-1.30); GLOMERULAR FILTRATION RATE > 60.0 (>60); GLUCOSE, FASTING 244 MG/DL (70-100); POTASSIUM SERUM 4.4 MEQ/L (3.5-5.1); SODIUM LEVEL 137 MEQ/L (136-145)
--- NOTE | 2019-06-13 07:31 | ECGEPIP ---
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
== END ==
LOC: M LAB 08:04
PROVIDERS: ATTEND Orthopaedic Surgery Hand Surgery
DX: G56.22 Lesion of ulnar nerve, left upper limb (principal); G56.02 Carpal tunnel syndrome, left upper limb

== ENCOUNTER → 2019-10-17 | Outpatient (CLI) | payer BC ==
[~2019-10-17] MED LIST changes: -OMEP-172; +OMEP1CAP73
[2019-10-17 13:10] LABS: ALBUMIN 3.2 GM/DL (3.2-5.2); ALT/SGPT 37 U/L (12-78); BILIRUBIN,TOTAL 0.5 MG/DL (0.2-1.0); BLOOD UREA NITROGEN 18 MG/DL (7-18); CALCIUM LEVEL 8.5 MG/DL (8.5-10.1); CARBON DIOXIDE LEVEL 27 MEQ/L (21-32); CHLORIDE LEVEL 102 MEQ/L (98-107); CHOLESTEROL LEVEL 149 MG/DL (<200); CREATININE FOR GFR 0.67 MG/DL (0.55-1.30); GLOMERULAR FILTRATION RATE > 60.0 (>60); GLUCOSE, FASTING 105 MG/DL (70-100); HDL CHOLESTEROL 39 MG/DL (>40); LDL CHOLESTEROL 67 MG/DL (<100); NON-HDL-C 110 MG/DL; POTASSIUM SERUM 4.3 MEQ/L (3.5-5.1); SODIUM LEVEL 137 MEQ/L (136-145); TOTAL PROTEIN 6.9 GM/DL (6.4-8.2); TRIGLYCERIDES LEVEL 214 MG/DL (<150)
[2019-10-17 13:30] LABS: MALB URINE SIEMENS 20.6 MG/L; MAU/CREAT RATIO 7.1 MCG/MG (0.0-30.0)
[2019-10-17 14:30] LABS: HEMOGLOBIN A1c 9.1 %
== END ==
LOC: M WUC 10:38
PROVIDERS: ATTEND Nurse Practitioner Family
DX: E11.65 Type 2 diabetes mellitus with hyperglycemia (principal)

== ENCOUNTER → 2020-03-26 | Outpatient (REF) | payer BC | LOC: M WUC 09:45 | PROVIDERS: ATTEND Physician Assistant | DX: R30.0 Dysuria (principal) ==

== ENCOUNTER → 2020-06-10 | Outpatient (CLI) | payer BC ==
[2020-06-10 10:46] LABS: ALBUMIN 3.2 GM/DL (3.2-5.2); ALT/SGPT 33 U/L (12-78); BILIRUBIN,TOTAL 0.4 MG/DL (0.2-1.0); BLOOD UREA NITROGEN 14 MG/DL (7-18); CALCIUM LEVEL 8.6 MG/DL (8.5-10.1); CARBON DIOXIDE LEVEL 27 MEQ/L (21-32); CHLORIDE LEVEL 103 MEQ/L (98-107); CHOLESTEROL LEVEL 132 MG/DL (<200); CHOLESTEROL RISK RATIO 4.125 (<5); CREATININE FOR GFR 0.72 MG/DL (0.55-1.30); FREE T4 1.15 NG/DL (0.76-1.46); GLOMERULAR FILTRATION RATE > 60.0 (>60); GLUCOSE, FASTING 200 MG/DL (70-100); HDL CHOLESTEROL 32 MG/DL (>40); LDL CHOLESTEROL 57 MG/DL (<100); NON-HDL-C 100 MG/DL; POTASSIUM SERUM 4.5 MEQ/L (3.5-5.1); SODIUM LEVEL 136 MEQ/L (136-145); TOTAL PROTEIN 6.9 GM/DL (6.4-8.2); TRIGLYCERIDES LEVEL 213 MG/DL (<150)
[2020-06-10 10:50] LABS: MALB URINE SIEMENS 8.6 MG/L; MAU/CREAT RATIO 6.9 MCG/MG (0.0-30.0)
== END ==
LOC: M WUC 08:22
PROVIDERS: ATTEND Nurse Practitioner Family
DX: E03.9 Hypothyroidism, unspecified (principal); E78.2 Mixed hyperlipidemia; I10 Essential (primary) hypertension

== ENCOUNTER → 2020-07-31 | Outpatient (REF) | payer BC ==
[~2020-07-31] MED LIST changes: +LISI10TA22; -LISI10TA4
[2020-07-31 16:14] LABS: BLOOD UREA NITROGEN 10 MG/DL (7-18); CALCIUM LEVEL 8.9 MG/DL (8.5-10.1); CARBON DIOXIDE LEVEL 28 MEQ/L (21-32); CHLORIDE LEVEL 106 MEQ/L (98-107); CREATININE FOR GFR 0.72 MG/DL (0.55-1.30); GLOMERULAR FILTRATION RATE > 60.0 (>60); GLUCOSE, FASTING 140 MG/DL (70-100); POTASSIUM SERUM 4.5 MEQ/L (3.5-5.1); SODIUM LEVEL 140 MEQ/L (136-145)
== END ==
LOC: M SFHCPLAZ 14:17
PROVIDERS: ATTEND Family Medicine
DX: Z01.818 Encounter for other preprocedural examination (principal)

== ENCOUNTER → 2020-09-18 | Outpatient (REF) | payer BC ==
[2020-09-18 18:54] LABS: CREATININE, URINE 51.7 MG/DL; MALB URINE SIEMENS < 5.0 MG/L; MAU/CREAT RATIO 9.6 MCG/MG (0.0-30.0)
== END ==
LOC: M LAB REF 17:10
PROVIDERS: ATTEND Nurse Practitioner Family
DX: E11.65 Type 2 diabetes mellitus with hyperglycemia (principal)

== ENCOUNTER → 2020-12-17 | Outpatient (CLI) | payer BC ==
[~2020-12-17] MED LIST changes: +OMEP40CA4; -OMEP40CA97
[2020-12-17 11:34] LABS: ALBUMIN 3.3 GM/DL (3.2-5.2); ALT/SGPT 30 U/L (12-78); BILIRUBIN,TOTAL 0.4 MG/DL (0.2-1.0); BLOOD UREA NITROGEN 15 MG/DL (7-18); CALCIUM LEVEL 8.6 MG/DL (8.5-10.1); CARBON DIOXIDE LEVEL 27 MEQ/L (21-32); CHLORIDE LEVEL 103 MEQ/L (98-107); CHOLESTEROL LEVEL 136 MG/DL (<200); CREATININE FOR GFR 0.71 MG/DL (0.55-1.30); FREE T4 1.12 NG/DL (0.76-1.46); GLOMERULAR FILTRATION RATE > 60.0 (>60); GLUCOSE, FASTING 166 MG/DL (70-100); HDL CHOLESTEROL 34 MG/DL (>40); LDL CHOLESTEROL 68 MG/DL (<100); NON-HDL-C 102 MG/DL; POTASSIUM SERUM 4.6 MEQ/L (3.5-5.1); SODIUM LEVEL 135 MEQ/L (136-145); TOTAL PROTEIN 7.1 GM/DL (6.4-8.2); TRIGLYCERIDES LEVEL 169 MG/DL (<150)
== END ==
LOC: M PLALAB 08:16
PROVIDERS: ATTEND Nurse Practitioner Family
DX: E03.9 Hypothyroidism, unspecified (principal); E78.2 Mixed hyperlipidemia; E55.9 Vitamin D deficiency, unspecified

== ENCOUNTER → 2021-06-21 | Outpatient (CLI) | payer BC ==
[2021-06-21 15:39] LABS: ALBUMIN 3.6 GM/DL (3.2-5.2); ALT/SGPT 26 U/L (12-78); BILIRUBIN,TOTAL 0.5 MG/DL (0.2-1.0); BLOOD UREA NITROGEN 18 MG/DL (7-18); CALCIUM LEVEL 8.5 MG/DL (8.5-10.1); CARBON DIOXIDE LEVEL 26 MEQ/L (21-32); CHLORIDE LEVEL 104 MEQ/L (98-107); CREATININE FOR GFR 0.73 MG/DL (0.55-1.30); FREE T4 1.08 NG/DL (0.76-1.46); GLOMERULAR FILTRATION RATE > 60.0 (>60); GLUCOSE, FASTING 147 MG/DL (70-100); POTASSIUM SERUM 4.3 MEQ/L (3.5-5.1); SODIUM LEVEL 136 MEQ/L (136-145); TOTAL 25(OH) VITAMIN D 43.4 NG/ML (30.0-100.0); TOTAL PROTEIN 7.5 GM/DL (6.4-8.2)
== END ==
LOC: M PLALAB 12:46
PROVIDERS: ATTEND Nurse Practitioner Family
DX: E03.9 Hypothyroidism, unspecified (principal)

== ENCOUNTER → 2021-09-27 | Outpatient (CLI) | payer BC ==
[2021-09-27 10:10] LABS: BASO % 0.7 % (0.0-1.0); EOS # 0.1 10^3/uL (0.0-0.5); EOS % 1.6 % (0.0-3.0); HEMATOCRIT 28.5 % (36.0-47.0); HEMOGLOBIN 7.2 g/dl (12.0-15.5); LYMPH # 2.2 10^3/uL (1.5-5.0); MEAN CORPUSCULAR HEMOGLOBIN 16.2 pg (27.0-33.0); MEAN CORPUSCULAR HGB CONC 25.3 g/dl (32.0-36.5); MEAN CORPUSCULAR VOLUME 64.2 fl (80.0-96.0); MONO # 0.4 10^3/uL (0.0-0.8); MONO % 6.4 % (2.0-8.0); NEUTROPHILS # 3.4 10^3/uL (1.5-8.5); NEUTROPHILS % 55.1 % (36.0-66.0); PLATELET COUNT, AUTOMATED 284 10^3/uL (150-450); RED BLOOD COUNT 4.44 10^6/uL (4.00-5.40); WHITE BLOOD COUNT 6.1 10^3/uL (4.0-10.0)
[2021-09-27 10:28] LABS: CHOLESTEROL RISK RATIO 4.466 (<5)
[2021-09-27 10:32] LABS: HEMOGLOBIN A1c 8.1 %
== END ==
LOC: M WUC 08:06
PROVIDERS: ATTEND Physician Assistant Medical
DX: E78.2 Mixed hyperlipidemia (principal); E11.9 Type 2 diabetes mellitus without complications; K21.9 Gastro-esophageal reflux disease without esophagitis

== ENCOUNTER 2021-10-05 17:27 | Observation (INO) | payer BC ==
[~2021-10-05] VITALS: Ht 167.6 cm; Wt 88.2 kg
[~2021-10-05 17:27] MED LIST changes: -LEVO50TA5; +LEVO50TA5 PO; -METF10004; +METF10004 PO; -OMEP1CAP73; +OMEP1CAP73 PO
[2021-10-05 18:07] LABS: BASO % 0.5 % (0.0-1.0); EOS # 0.2 10^3/uL (0.0-0.5); HEMOGLOBIN 7.3 g/dl (12.0-15.5); LYMPH # 2.7 10^3/uL (1.5-5.0); LYMPH % 36.6 % (24.0-44.0); MEAN CORPUSCULAR HEMOGLOBIN 16.7 pg (27.0-33.0); MEAN CORPUSCULAR HGB CONC 26.1 g/dl (32.0-36.5); MEAN CORPUSCULAR VOLUME 64.1 fl (80.0-96.0); MONO # 0.5 10^3/uL (0.0-0.8); MONO % 7.2 % (2.0-8.0); NEUTROPHILS # 3.9 10^3/uL (1.5-8.5); NEUTROPHILS % 53.3 % (36.0-66.0); PLATELET COUNT, AUTOMATED 262 10^3/uL (150-450); RED BLOOD COUNT 4.37 10^6/uL (4.00-5.40); WHITE BLOOD COUNT 7.4 10^3/uL (4.0-10.0)
[2021-10-05 18:32] LABS: BLOOD UREA NITROGEN 15 MG/DL (7-18); CALCIUM LEVEL 9.5 MG/DL (8.5-10.1); CARBON DIOXIDE LEVEL 27 MEQ/L (21-32); CHLORIDE LEVEL 104 MEQ/L (98-107); GLOMERULAR FILTRATION RATE > 60.0 (>60); GLUCOSE, FASTING 224 MG/DL (70-100); POTASSIUM SERUM 4.1 MEQ/L (3.5-5.1); SODIUM LEVEL 137 MEQ/L (136-145)
[2021-10-05 18:34] LABS: HCG, SERUM QUALITATIVE NEGATIVE (NEGATIVE)
[2021-10-05] MEDS ORDERED: GLUCOSE 4GM CHEW TABLET PO PRN (19:20)
[2021-10-05] MEDS ORDERED: DEXTROSE 50% 50 ML SYRINGE IV PRN (19:20)
[2021-10-05] MEDS ORDERED: ACETAMINOPHEN TAB 650MG DOSE (2X325MG) PO PRN (19:20)
[2021-10-05] MEDS ORDERED: GLUCAGON INJ 1MG VIAL SC PRN (19:20)
[2021-10-05] MEDS ORDERED: BIOT1CAP2 PO (19:41)
[2021-10-05] MEDS ORDERED: VITA100093 PO (19:41)
[2021-10-05] MEDS ORDERED: SEMA1PEN2 SC (19:48)
[2021-10-05] MEDS ORDERED: ALTA1TAB3 PO (19:48)
[2021-10-05] MEDS ORDERED: ALBU8.5H INH (19:48)
[2021-10-05] MEDS ORDERED: FARX1TAB5 PO (19:48)
[2021-10-05] MEDS ORDERED: HOME MED LIST COMPLETE! XX SCH (19:50)
[2021-10-05 20:03] LABS: FERRITIN 3 NG/ML (8-252); IRON (FE) 19 UG/DL (50-170); TOTAL IRON BINDING CAPACITY 639 UG/DL (250-450)
[2021-10-05 20:05] VITALS: BP 180/92
[2021-10-05 20:10] LABS: FOLATE > 24.0 NG/ML; VITAMIN B12 LEVEL 285 PG/ML
[2021-10-05 20:23] VITALS: BP 152/69
[2021-10-05 20:24] LABS: RSV AMPLIFICATION NEGATIVE (NEGATIVE)
[2021-10-05 20:48] LABS: INR 0.9; PARTIAL THROMBOPLASTIN TIME 20.3 SECONDS (25.9-37.0); PROTHROMBIN TIME 12.5 SECONDS (12.7-14.5)
[2021-10-05 21:00] VITALS: BP 166/81
[2021-10-05] MEDS ORDERED: HumaLOG INSULIN (NovoLOG) PER UNIT SC SCH (21:00)
[2021-10-05] MEDS: PANTOPRAZOLE 40MG VIAL IV SCH (21:45)
[2021-10-05 22:00] VITALS: BP 147/89
[2021-10-05 22:13] VITALS: BP 141/79
[2021-10-05 23:00] VITALS: BP 142/80
[2021-10-06] VITALS (7 sets, daily range): BP systolic 132–143; BP diastolic 63–80
[2021-10-06 04:52] LABS: BASO % 0.6 % (0.0-1.0); EOS # 0.1 10^3/uL (0.0-0.5); EOS % 1.7 % (0.0-3.0); HEMATOCRIT 32.3 % (36.0-47.0); HEMOGLOBIN 9.1 g/dl (12.0-15.5); LYMPH # 2.5 10^3/uL (1.5-5.0); LYMPH % 37.8 % (24.0-44.0); MEAN CORPUSCULAR HGB CONC 28.2 g/dl (32.0-36.5); MEAN CORPUSCULAR VOLUME 67.4 fl (80.0-96.0); MONO # 0.5 10^3/uL (0.0-0.8); NEUTROPHILS # 3.5 10^3/uL (1.5-8.5); NEUTROPHILS % 52.7 % (36.0-66.0); PLATELET COUNT, AUTOMATED 209 10^3/uL (150-450); RED BLOOD COUNT 4.79 10^6/uL (4.00-5.40); WHITE BLOOD COUNT 6.5 10^3/uL (4.0-10.0)
[2021-10-06 05:06] LABS: BLOOD UREA NITROGEN 12 MG/DL (7-18); CREATININE FOR GFR 0.75 MG/DL (0.55-1.30); GLOMERULAR FILTRATION RATE > 60.0 (>60); GLUCOSE, FASTING 247 MG/DL (70-100); SODIUM LEVEL 136 MEQ/L (136-145)
[2021-10-06 05:07] LABS: CALCIUM LEVEL 8.2 MG/DL (8.5-10.1); CARBON DIOXIDE LEVEL 25 MEQ/L (21-32); CHLORIDE LEVEL 105 MEQ/L (98-107); POTASSIUM SERUM 3.9 MEQ/L (3.5-5.1)
[2021-10-06] MEDS ORDERED: NS 1,000 ML IV ONE (05:30)
[2021-10-06] MEDS ORDERED: LEVOTHYROXINE 50MCG TABLET (0.05MG) PO SCH (06:00)
[2021-10-06] MEDS: HumaLOG INSULIN (NovoLOG) PER UNIT SC SCH ×2 (07:51→12:18)
[2021-10-06] MEDS: PANTOPRAZOLE 40MG VIAL IV SCH (07:52)
[2021-10-06] MEDS ORDERED: VITAMIN D 1,000 INTERNATIONAL UNITS TABLET PO SCH (09:00)
[2021-10-06] MEDS ORDERED: ENTER DRUG NAME HERE (PATIENT'S OWN MED) PO SCH (09:00)
[2021-10-06] MEDS ORDERED: FERROUS SULFATE 325MG TAB PO SCH (09:00)
[2021-10-06 11:17] LABS: HEMATOCRIT 33.7 % (36.0-47.0); HEMOGLOBIN 9.7 g/dl (12.0-15.5)
[2021-10-06] MEDS ORDERED: FERR1TAB8 PO (11:42)
[2021-10-06] MEDS ORDERED: LEVEMIR (INSULIN DETEMIR) 1 UNITS/0.01ML SC SCH (21:00)
== END 2021-10-06 13:30 | disposition home or self-care (01) ==
LOC: M ED 17:27 → M ED INP 19:18 → M 4MAIN 21:57
PROVIDERS: ADMIT Family Medicine; ATTEND Family Medicine
DX: D50.9 Iron deficiency anemia, unspecified (principal); R00.0 Tachycardia, unspecified; U07.1 COVID-19; E11.40 Type 2 diabetes mellitus with diabetic neuropathy, unspecified; E03.9 Hypothyroidism, unspecified; I10 Essential (primary) hypertension; G43.909 Migraine, unspecified, not intractable, without status migrainosus; E28.2 Polycystic ovarian syndrome; E78.5 Hyperlipidemia, unspecified; K21.9 Gastro-esophageal reflux disease without esophagitis; K76.0 Fatty (change of) liver, not elsewhere classified; Z87.42 Personal history of other diseases of the female genital tract; Z79.899 Other long term (current) drug therapy; Z79.84 Long term (current) use of oral hypoglycemic drugs; Z79.3 Long term (current) use of hormonal contraceptives; Z91.018 Allergy to other foods; Z83.3 Family history of diabetes mellitus
CPT/HCPCS: 36415; 36430; 71045; 80048; 82607; 82728; 82746; 83550; 83605; 84145; 84703; 85014; 85018; 85025; 85610; 85730; 86850; 86900; 86901; 86920; 87426; 87631; 93041; 94760; 96361; 96374; 96376; 99285; C9113; J1815; P9016

== ENCOUNTER → 2021-10-20 | Outpatient (CLI) | payer BC ==
[~2021-10-20] MED LIST changes: +ALBU8.5H INH; +ALTA1TAB3 PO; +BIOT1CAP2 PO; +FARX1TAB5 PO; +FERR1TAB8 PO; +SEMA1PEN2 SC; +VITA100093 PO
[2021-10-20 17:28] LABS: BASO % 0.7 % (0.0-1.0); EOS # 0.1 10^3/uL (0.0-0.5); EOS % 2.4 % (0.0-3.0); HEMOGLOBIN 10.4 g/dl (12.0-15.5); LYMPH # 2.4 10^3/uL (1.5-5.0); LYMPH % 40.9 % (24.0-44.0); MEAN CORPUSCULAR HEMOGLOBIN 20.2 pg (27.0-33.0); MEAN CORPUSCULAR HGB CONC 28.1 g/dl (32.0-36.5); MEAN CORPUSCULAR VOLUME 71.8 fl (80.0-96.0); MONO # 0.4 10^3/uL (0.0-0.8); MONO % 6.6 % (2.0-8.0); NEUTROPHILS # 2.9 10^3/uL (1.5-8.5); NEUTROPHILS % 49.2 % (36.0-66.0); PLATELET COUNT, AUTOMATED 309 10^3/uL (150-450); RED BLOOD COUNT 5.15 10^6/uL (4.00-5.40); WHITE BLOOD COUNT 5.8 10^3/uL (4.0-10.0)
[2021-10-20 17:45] LABS: FERRITIN 10 NG/ML (8-252); IRON (FE) 31 UG/DL (50-170)
== END ==
LOC: M PLALAB 15:13
PROVIDERS: ATTEND Physician Assistant Medical
DX: D64.9 Anemia, unspecified (principal)

== ENCOUNTER → 2021-11-24 | Outpatient (CLI) | payer BC ==
[2021-11-24 17:13] LABS: BASO % 0.5 % (0.0-1.0); EOS # 0.1 10^3/uL (0.0-0.5); EOS % 1.7 % (0.0-3.0); HEMATOCRIT 38.5 % (36.0-47.0); HEMOGLOBIN 11.1 g/dl (12.0-15.5); LYMPH # 2.2 10^3/uL (1.5-5.0); LYMPH % 34.8 % (24.0-44.0); MEAN CORPUSCULAR HEMOGLOBIN 21.9 pg (27.0-33.0); MEAN CORPUSCULAR HGB CONC 28.8 g/dl (32.0-36.5); MEAN CORPUSCULAR VOLUME 75.8 fl (80.0-96.0); MONO # 0.4 10^3/uL (0.0-0.8); MONO % 5.9 % (2.0-8.0); NEUTROPHILS # 3.6 10^3/uL (1.5-8.5); NEUTROPHILS % 56.9 % (36.0-66.0); PLATELET COUNT, AUTOMATED 240 10^3/uL (150-450); RED BLOOD COUNT 5.08 10^6/uL (4.00-5.40); WHITE BLOOD COUNT 6.3 10^3/uL (4.0-10.0)
[2021-11-24 17:41] LABS: FERRITIN 16 NG/ML (8-252); IRON (FE) 124 UG/DL (50-170)
[2021-11-24 18:08] LABS: HEMOGLOBIN A1c 8.7 %
== END ==
LOC: M PLALAB 15:18
PROVIDERS: ATTEND Physician Assistant Medical
DX: D64.9 Anemia, unspecified (principal)

== ENCOUNTER → 2022-01-06 | Outpatient (CLI) | payer BC ==
[2022-01-06 17:47] LABS: BASO # 0.1 10^3/uL (0.0-0.2); BASO % 0.6 % (0.0-1.0); EOS # 0.2 10^3/uL (0.0-0.5); EOS % 2.1 % (0.0-3.0); HEMATOCRIT 44.1 % (36.0-47.0); HEMOGLOBIN 13.4 g/dl (12.0-15.5); LYMPH # 2.9 10^3/uL (1.5-5.0); LYMPH % 37.3 % (24.0-44.0); MEAN CORPUSCULAR HEMOGLOBIN 24.3 pg (27.0-33.0); MEAN CORPUSCULAR HGB CONC 30.4 g/dl (32.0-36.5); MEAN CORPUSCULAR VOLUME 79.9 fl (80.0-96.0); MONO # 0.4 10^3/uL (0.0-0.8); MONO % 5.6 % (2.0-8.0); NEUTROPHILS # 4.2 10^3/uL (1.5-8.5); NEUTROPHILS % 54.3 % (36.0-66.0); PLATELET COUNT, AUTOMATED 214 10^3/uL (150-450); RED BLOOD COUNT 5.52 10^6/uL (4.00-5.40); WHITE BLOOD COUNT 7.7 10^3/uL (4.0-10.0)
[2022-01-06 18:21] LABS: HEMOGLOBIN A1c 9.8 %
[2022-01-06 18:36] LABS: BLOOD UREA NITROGEN 14 MG/DL (7-18); CALCIUM LEVEL 9.5 MG/DL (8.5-10.1); CARBON DIOXIDE LEVEL 28 MEQ/L (21-32); CHLORIDE LEVEL 101 MEQ/L (98-107); CREATININE FOR GFR 0.76 MG/DL (0.55-1.30); GLOMERULAR FILTRATION RATE > 60.0 (>60); GLUCOSE, FASTING 172 MG/DL (70-100); POTASSIUM SERUM 4.3 MEQ/L (3.5-5.1); SODIUM LEVEL 136 MEQ/L (136-145)
[2022-01-06 18:37] LABS: ALBUMIN 3.7 GM/DL (3.2-5.2); ALT/SGPT 84 U/L (12-78); BILIRUBIN,TOTAL 0.3 MG/DL (0.2-1.0); FERRITIN 15 NG/ML (8-252); FREE T4 1.15 NG/DL (0.76-1.46); IRON (FE) 45 UG/DL (50-170); LIPASE 166 U/L (73-393); TOTAL PROTEIN 8.1 GM/DL (6.4-8.2)
== END ==
LOC: M PLAIMG 14:36
PROVIDERS: ATTEND Physician Assistant
DX: R11.0 Nausea (principal); D50.9 Iron deficiency anemia, unspecified; R53.83 Other fatigue; E11.65 Type 2 diabetes mellitus with hyperglycemia

== ENCOUNTER → 2022-02-17 | Outpatient (CLI) | payer BC ==
[2022-02-17 13:56] LABS: BASO % 0.5 % (0.0-1.0); EOS # 0.2 10^3/uL (0.0-0.5); EOS % 2.8 % (0.0-3.0); HEMATOCRIT 42.2 % (36.0-47.0); HEMOGLOBIN 13.3 g/dl (12.0-15.5); LYMPH # 1.6 10^3/uL (1.5-5.0); LYMPH % 28.3 % (24.0-44.0); MEAN CORPUSCULAR HGB CONC 31.5 g/dl (32.0-36.5); MEAN CORPUSCULAR VOLUME 82.6 fl (80.0-96.0); MONO # 0.3 10^3/uL (0.0-0.8); MONO % 5.8 % (2.0-8.0); NEUTROPHILS # 3.6 10^3/uL (1.5-8.5); NEUTROPHILS % 62.4 % (36.0-66.0); PLATELET COUNT, AUTOMATED 203 10^3/uL (150-450); RED BLOOD COUNT 5.11 10^6/uL (4.00-5.40); WHITE BLOOD COUNT 5.7 10^3/uL (4.0-10.0)
[2022-02-17 14:29] LABS: HEMOGLOBIN A1c 10.4 %
[2022-02-17 14:34] LABS: FERRITIN 24 NG/ML (8-252); IRON (FE) 39 UG/DL (50-170)
== END ==
LOC: M PLALAB 09:38
PROVIDERS: ATTEND Physician Assistant Medical
DX: D50.9 Iron deficiency anemia, unspecified (principal); E11.9 Type 2 diabetes mellitus without complications

== ENCOUNTER → 2022-09-13 | Outpatient (REF) | payer BC ==
[2022-09-13 22:33] LABS: APPEARANCE, URINE CLEAR (CLEAR); BACTERIA, URINE AUTO 2+ (NEGATIVE); BILIRUBIN, URINE AUTO NEGATIVE (NEGATIVE); BLOOD, URINE BLOOD 3+ (NEGATIVE); CALCIUM OXALATE CRYSTALS SMALL; COLOR, URINE YELLOW (YELLOW); GLUCOSE, URINE (UA) AUTO 3+ mg/dL (NEGATIVE); KETONE, URINE AUTO NEGATIVE (NEGATIVE); LEUKOCYTE ESTERASE, URINE AUTO 1+ (NEGATIVE); NITRITE, URINE AUTO NEGATIVE (NEGATIVE); PROTEIN, URINE AUTO 1+ mg/dL (NEGATIVE); RBC, URINE AUTO 44 /HPF (0-3); SPECIFIC GRAVITY URINE AUTO 1.046 (1.002-1.035); SQUAMOUS EPITHELIAL CELL UR AU 11 /HPF (0-6); UROBILINOGEN, URINE AUTO 0.2 mg/dL (0.0-2.0); WBC, URINE AUTO 37 /HPF (0-3)
== END ==
LOC: M LAB REF 21:15
PROVIDERS: ATTEND Physician Assistant Medical
DX: N39.0 Urinary tract infection, site not specified (principal)

== ENCOUNTER → 2022-10-03 | Outpatient (REF) | payer OTHER | LOC: M SFHCPLAZ 15:45 | PROVIDERS: ATTEND Physician Assistant Medical | DX: R19.7 Diarrhea, unspecified (principal) ==

== ENCOUNTER → 2022-10-05 | Outpatient (REF) | payer OTHER | LOC: M SFHCPLAZ 17:06 | PROVIDERS: ATTEND Physician Assistant Medical | DX: Z53.9 Procedure and treatment not carried out, unspecified reason (principal) ==

== ENCOUNTER → 2022-11-02 | Outpatient (CLI) | payer OTHER ==
[2022-11-02 15:17] LABS: IRON (FE) 37 UG/DL (50-170)
[2022-11-02 15:21] LABS: FERRITIN 35.7 NG/ML (7.3-270.7)
[2022-11-02 15:25] LABS: HCG, SERUM QUALITATIVE NEGATIVE (NEGATIVE)
[2022-11-02 15:28] LABS: BASO # 0.1 10^3/uL (0.0-0.2); BASO % 0.7 % (0.0-1.0); EOS # 0.3 10^3/uL (0.0-0.5); EOS % 3.8 % (0.0-3.0); HEMATOCRIT 46.7 % (36.0-47.0); HEMOGLOBIN 14.8 g/dl (12.0-15.5); LYMPH # 2.6 10^3/uL (1.5-5.0); LYMPH % 31.1 % (24.0-44.0); MEAN CORPUSCULAR HEMOGLOBIN 28.5 pg (27.0-33.0); MEAN CORPUSCULAR HGB CONC 31.7 g/dl (32.0-36.5); MEAN CORPUSCULAR VOLUME 89.8 fl (80.0-96.0); MONO # 0.5 10^3/uL (0.0-0.8); MONO % 6.1 % (2.0-8.0); NEUTROPHILS # 4.8 10^3/uL (1.5-8.5); NEUTROPHILS % 58.1 % (36.0-66.0); PLATELET COUNT, AUTOMATED 231 10^3/uL (150-450); WHITE BLOOD COUNT 8.3 10^3/uL (4.0-10.0)
== END ==
LOC: M PLALAB 09:28
PROVIDERS: ATTEND Physician Assistant Medical
DX: R19.7 Diarrhea, unspecified (principal); E11.9 Type 2 diabetes mellitus without complications; J01.00 Acute maxillary sinusitis, unspecified

== ENCOUNTER → 2022-11-02 | Outpatient (REF) | payer OTHER | LOC: M SFHCPLAZ 09:11 | PROVIDERS: ATTEND Physician Assistant Medical | DX: K21.9 Gastro-esophageal reflux disease without esophagitis (principal) ==

== ENCOUNTER → 2022-11-08 | Outpatient (CLI) | payer OTHER | LOC: M PLALAB 08:49 | PROVIDERS: ATTEND Physician Assistant Medical | DX: K21.9 Gastro-esophageal reflux disease without esophagitis (principal) ==

== ENCOUNTER → 2022-12-08 | Outpatient (REF) | payer OTHER | LOC: M SFHCPLAZ 08:28 | PROVIDERS: ATTEND Physician Assistant Medical | DX: D50.9 Iron deficiency anemia, unspecified (principal); E11.9 Type 2 diabetes mellitus without complications; Z53.9 Procedure and treatment not carried out, unspecified reason ==

== ENCOUNTER 2022-12-19 08:59 | Outpatient (CLI) | payer OTHER ==
[~2022-12-19] VITALS: Ht 167.6 cm; Wt 90.7 kg
[~2022-12-19 08:59] MED LIST changes: +ALBUTEROL SULFATE 2.5MG/0.5ML INH NEB SOLN INH PRN; +EPINEPHrine INJ 1 MG/ML 1ML AMP IM PRN; +diphenhydrAMINE 50MG/ML VIAL IV PRN; +methylPREDNISolone 125MG 2ML VIAL IV PRN
[2022-12-19] MEDS ORDERED: NS 1,000 ML IV SCH (09:00)
[2022-12-19] MEDS ORDERED: IRON SUCROSE 225 MG in NS 213.75 ML IV ONE (09:00)
[2022-12-19] MEDS ORDERED: IRON SUCROSE 25 MG in NS 23.75 ML IV ONE (09:00)
[2022-12-19 09:15] VITALS: BP 140/56; O2SAT 98
[2022-12-19 12:10] VITALS: BP 151/90; O2SAT 100
== END 2022-12-19 12:10 ==
LOC: M INFU 08:59
PROVIDERS: ATTEND Physician Assistant Medical
DX: D50.9 Iron deficiency anemia, unspecified (principal); Z91.010 Allergy to peanuts
CPT/HCPCS: 96365; J1756

== ENCOUNTER 2022-12-26 08:47 | Outpatient (CLI) | payer OTHER ==
[~2022-12-26] VITALS: Ht 167.6 cm; Wt 90.0 kg
[2022-12-26 09:00] VITALS: BP 135/72; O2SAT 99
[2022-12-26] MEDS ORDERED: NS 1,000 ML IV SCH (09:00)
[2022-12-26] MEDS ORDERED: IRON SUCROSE 250 MG in NS 237.5 ML IV ONE (09:00)
[2022-12-26 10:55] VITALS: BP 129/82; O2SAT 97
== END 2022-12-26 10:55 ==
LOC: M INFU 08:47
PROVIDERS: ATTEND Physician Assistant Medical
DX: D50.9 Iron deficiency anemia, unspecified (principal)
CPT/HCPCS: 96365; J1756

== ENCOUNTER 2023-01-03 12:50 | Outpatient (CLI) | payer OTHER ==
[~2023-01-03] VITALS: Ht 167.6 cm; Wt 90.0 kg
[2023-01-03] MEDS ORDERED: IRON SUCROSE 250 MG in NS 237.5 ML IV ONE (13:00)
[2023-01-03] MEDS ORDERED: NS 1,000 ML IV SCH (13:00)
[2023-01-03 13:06] VITALS: BP 135/65; O2SAT 99
[2023-01-03 15:06] VITALS: BP 135/95; O2SAT 98
== END 2023-01-03 15:05 ==
LOC: M INFU 12:50
PROVIDERS: ATTEND Physician Assistant Medical
DX: D64.9 Anemia, unspecified (principal)
CPT/HCPCS: 96365; J1756

== ENCOUNTER → 2023-02-15 | Outpatient (CLI) | payer OTHER ==
[~2023-02-15] MED LIST changes: -ALBUTEROL SULFATE 2.5MG/0.5ML INH NEB SOLN INH PRN; -EPINEPHrine INJ 1 MG/ML 1ML AMP IM PRN; -diphenhydrAMINE 50MG/ML VIAL IV PRN; -methylPREDNISolone 125MG 2ML VIAL IV PRN
[2023-02-15 19:02] LABS: BASO # 0.1 10^3/uL (0.0-0.2); BASO % 0.5 % (0.0-1.0); EOS # 0.2 10^3/uL (0.0-0.5); EOS % 2.3 % (0.0-3.0); HEMATOCRIT 43.6 % (36.0-47.0); HEMOGLOBIN 14.4 g/dl (12.0-15.5); LYMPH # 3.6 10^3/uL (1.5-5.0); LYMPH % 35.6 % (24.0-44.0); MEAN CORPUSCULAR HEMOGLOBIN 28.8 pg (27.0-33.0); MEAN CORPUSCULAR VOLUME 87.2 fl (80.0-96.0); MONO # 0.6 10^3/uL (0.0-0.8); MONO % 6.2 % (2.0-8.0); NEUTROPHILS # 5.5 10^3/uL (1.5-8.5); NEUTROPHILS % 55.2 % (36.0-66.0); PLATELET COUNT, AUTOMATED 223 10^3/uL (150-450)
[2023-02-15 19:33] LABS: FERRITIN 124.5 NG/ML (7.3-270.7); HEMOGLOBIN A1c 7.9 % (4.0-6.0)
== END ==
LOC: M WUC 15:32
PROVIDERS: ATTEND Physician Assistant Medical
DX: D50.9 Iron deficiency anemia, unspecified (principal); E11.9 Type 2 diabetes mellitus without complications

== ENCOUNTER → 2023-03-14 | Outpatient (CLI) | payer OTHER, BC ==
[2023-03-14 13:28] LABS: ALBUMIN 3.9 G/DL (3.2-5.2); ALKALINE PHOSPHATASE 61 U/L (46-116); ALT/SGPT 27 U/L (7.0-40); AST/SGOT 22 U/L (<34); BILIRUBIN,TOTAL 0.4 MG/DL (0.3-1.2); BLOOD UREA NITROGEN 15 MG/DL (9-23); CALCIUM LEVEL 9.3 MG/DL (8.5-10.1); CARBON DIOXIDE LEVEL 27 MMOL/L (20-31); CHLORIDE LEVEL 105 MMOL/L (98-107); CHOLESTEROL LEVEL 180 MG/DL (<200); CHOLESTEROL RISK RATIO 3.94 (<5); CREATININE FOR GFR 0.65 MG/DL (0.55-1.30); FREE T4 1.09 NG/DL (0.89-1.76); GLOMERULAR FILTRATION RATE > 60.0 (>60); GLUCOSE, FASTING 139 MG/DL (60-100); HDL CHOLESTEROL 45.6 MG/DL (>40); NON-HDL-C 134.4 MG/DL; POTASSIUM SERUM 4.8 MMOL/L (3.5-5.1); SODIUM LEVEL 139 MMOL/L (136-145); THYROID STIMULATING HORMONE 1.815 uIU/ML (0.55-4.78); TOTAL PROTEIN 6.9 G/DL (5.7-8.2); TRIGLYCERIDES LEVEL 352 MG/DL (<150)
[2023-03-14 13:54] LABS: CREATININE, URINE 63.9 MG/DL; MAU/CREAT RATIO 12.5 MCG/MG (0.0-30.0)
== END ==
LOC: M PLALAB 09:53
PROVIDERS: ATTEND Physician Assistant Medical
DX: E11.9 Type 2 diabetes mellitus without complications (principal)

== ENCOUNTER 2023-06-15 10:54 | Emergency (ER) | payer OTHER ==
[~2023-06-15] VITALS: Ht 167.6 cm; Wt 87.6 kg
[~2023-06-15 10:54] MED LIST changes: -BIOT50004 PO; +BIOT5CAP8 PO; +RALTEGRAVIR 400 MG TAB (ISENTRESS) PO SCH; +TRUVADA 200MG/300MG TABLET PO SCH
[2023-06-15] MEDS ORDERED: METF-838 (11:07)
[2023-06-15] MEDS ORDERED: FARX1TAB3 (11:08)
[2023-06-15] MEDS ORDERED: LORA-1041 (11:08)
[2023-06-15] MEDS ORDERED: TOPI25TA10 (11:08)
[2023-06-15] MEDS ORDERED: INSU100I24 (11:08)
[2023-06-15] MEDS ORDERED: GABA-282 (11:08)
[2023-06-15 11:44] LABS: BASO # 0.1 10^3/uL (0.0-0.2); BASO % 0.6 % (0.0-1.0); EOS # 0.3 10^3/uL (0.0-0.5); EOS % 3.3 % (0.0-3.0); HEMATOCRIT 47.1 % (36.0-47.0); HEMOGLOBIN 15.6 g/dl (12.0-15.5); LYMPH # 2.6 10^3/uL (1.5-5.0); LYMPH % 29.5 % (24.0-44.0); MEAN CORPUSCULAR HEMOGLOBIN 28.9 pg (27.0-33.0); MEAN CORPUSCULAR HGB CONC 33.1 g/dl (32.0-36.5); MEAN CORPUSCULAR VOLUME 87.4 fl (80.0-96.0); MONO # 0.5 10^3/uL (0.0-0.8); MONO % 5.2 % (2.0-8.0); NEUTROPHILS # 5.5 10^3/uL (1.5-8.5); NEUTROPHILS % 61.2 % (36.0-66.0); PLATELET COUNT, AUTOMATED 203 10^3/uL (150-450); RED BLOOD COUNT 5.39 10^6/uL (4.00-5.40)
[2023-06-15 12:11] LABS: ALBUMIN 4.2 G/DL (3.2-5.2); ALKALINE PHOSPHATASE 53 U/L (46-116); ALT/SGPT 28 U/L (7.0-40); AST/SGOT 21 U/L (<34); BILIRUBIN,TOTAL 0.7 MG/DL (0.3-1.2); BLOOD UREA NITROGEN 18 MG/DL (9-23); CALCIUM LEVEL 8.9 MG/DL (8.5-10.1); CARBON DIOXIDE LEVEL 25 MMOL/L (20-31); CHLORIDE LEVEL 108 MMOL/L (98-107); CREATININE FOR GFR 0.65 MG/DL (0.55-1.30); GLOMERULAR FILTRATION RATE > 60.0 (>60); GLUCOSE, FASTING 119 MG/DL (60-100); HCG, SERUM QUALITATIVE NEGATIVE (NEGATIVE); SODIUM LEVEL 140 MMOL/L (136-145); TOTAL PROTEIN 7.4 G/DL (5.7-8.2)
[2023-06-15 12:14] LABS: HEPATITIS B SURFACE ANTIBODY POSITIVE (POSITIVE)
[2023-06-15] MEDS ORDERED: BOOSTRIX VACCINE (TETANUS/DIPHTH/ACEL. PERTUSSIS) 0.5ML SYR IM.IMMUN ONE (12:55)
[2023-06-15] MEDS ORDERED: EXPOSURE KIT-ADULT 7 DAY SUPPLY PO ONE (12:55)
[2023-06-15] MEDS ORDERED: RALT40TA PO (13:03)
[2023-06-15] MEDS ORDERED: EMTR1TAB16 PO (13:03)
[2023-06-15 13:14] VITALS: BP 136/91; TEMP 96.3; O2SAT 100
[2023-06-15] MEDS ORDERED: TRUVADA 200MG/300MG TABLET PO ONE (13:20)
[2023-06-15] MEDS ORDERED: RALTEGRAVIR 400 MG TAB (ISENTRESS) PO ONE (13:20)
[2023-06-15 13:56] LABS: HIV 1&2 SCREEN NEGATIVE (NEGATIVE)
[2023-06-16] MEDS ORDERED: EMTR1TAB16 PO (13:01)
[2023-06-16] MEDS ORDERED: RALT40TA PO (13:01)
== END 2023-06-15 13:43 | disposition home or self-care (01) ==
LOC: M ED 10:54
DX: Z77.21 Contact with and (suspected) exposure to potentially hazardous body fluids (principal); W46.0XXA Contact with hypodermic needle, initial encounter; Z79.899 Other long term (current) drug therapy; Z79.890 Hormone replacement therapy; Y99.8 Other external cause status

== ENCOUNTER → 2023-08-18 | Outpatient (REF) | payer OTHER ==
[~2023-08-18] MED LIST changes: +EMTR1TAB16 PO; +FARX1TAB3; +GABA-282; +INSU100I24; +LORA-1041; +METF-838; +RALT40TA PO; -RALTEGRAVIR 400 MG TAB (ISENTRESS) PO SCH; +TOPI25TA10; -TRUVADA 200MG/300MG TABLET PO SCH
== END ==
LOC: M WUC 19:10
PROVIDERS: ATTEND Physician Assistant
DX: R30.0 Dysuria (principal)

== ENCOUNTER → 2023-08-21 | Outpatient (REF) | payer OTHER | LOC: M LAB REF 20:02 | PROVIDERS: ATTEND Student in an Organized Health Care Education/Training Program | DX: R30.0 Dysuria (principal) ==

== ENCOUNTER → 2024-01-31 | Outpatient (REF) | payer OTHER ==
[2024-01-31 16:18] LABS: CREATININE, URINE 166.3 MG/DL; MAU/CREAT RATIO 2.4 MCG/MG (0.0-30.0)
== END ==
LOC: M LAB REF 15:10
PROVIDERS: ATTEND Nurse Practitioner Family
DX: E11.65 Type 2 diabetes mellitus with hyperglycemia (principal)

== ENCOUNTER → 2024-08-06 | Outpatient (REF) | payer OTHER ==
[~2024-08-06] MED LIST changes: +GABA-1172; -GABA-282
== END ==
LOC: M LAB REF 12:30
PROVIDERS: ATTEND Family Medicine
DX: M79.651 Pain in right thigh (principal); R60.0 Localized edema

== ENCOUNTER → 2024-10-27 | Outpatient (REF) | payer OTHER ==
[~2024-10-27] MED LIST changes: +TOPI-256; -TOPI25TA10
== END ==
LOC: M WUC 17:20
PROVIDERS: ATTEND Student in an Organized Health Care Education/Training Program
DX: R30.0 Dysuria (principal)